=== PATIENT | female | born 1990 | race Hispanic/Latino ===

== ENCOUNTER 2021-04-28 18:14 | Emergency (ER) | payer SELFPAY ==
[2021-04-28] MEDS ORDERED: Dexamethasone 10 MG/ML VIAL ONE (19:28)
[2021-04-28] MEDS ORDERED: Lorazepam 2 MG/ML VIAL ONE (19:29)
[2021-04-28] MEDS ORDERED: Fentanyl 100 MCG/2 ML VIAL ONE (19:29)
[2021-04-28] MEDS ORDERED: Ketorolac Tromethamine 30 MG/ML VIAL ONE (19:29)
== END 2021-04-28 20:46 | disposition home or self-care (01) ==
LOC: ERS 18:14
DX: M54.42 Lumbago with sciatica, left side (principal)
CPT/HCPCS: 72100; 96374; 96375; J1100; J1885; J2060; J3010

== ENCOUNTER 2024-03-12 13:15 | Emergency (ER) | payer SELFPAY | END 2024-03-12 16:50 | disposition home or self-care (01) | LOC: ERS 13:15 | DX: M54.2 Cervicalgia (principal); M79.641 Pain in right hand; M54.6 Pain in thoracic spine | CPT/HCPCS: 71046; 72100 ==